=== PATIENT | male | born 1935 | race Caucasian/White ===

== ENCOUNTER → 2018-03-31 09:36 | Outpatient (CLI) | payer MEDICARE, OTHER ==
[~2018-03-31 09:36] MED LIST: DERMAFUNGAL113 GM TP; GLUCOPHAGE XR750 MG PO; GLUCOTROL 5 MG T5 MG PO; HEMOCYTE PLUS C1 CAP PO; LOPRESSOR25 MG PO; LOTRIMIN AF90 GM TOPICAL; PREDNISONE10 MG PO; TIMOPTIC 0.5 % O5 ML LEFT EYE; TUMERIC CURCUMIN PO; XALATAN 0.0052.5 ML EACH EYE; ZOFRAN4 MG PO; ZYTIGA250 MG PO
[2018-04-20 17:50] VITALS: BMI 32.4
== END | disposition home or self-care (01) ==
LOC: D.RT 09:36
DX: C61 Malignant neoplasm of prostate (principal); R91.1 Solitary pulmonary nodule

== ENCOUNTER → 2018-04-05 12:58 | Outpatient (CLI) | payer MEDICARE, OTHER ==
[2018-04-20 17:50] VITALS: BMI 32.4
== END | disposition home or self-care (01) ==
LOC: D.ECHO 12:58
DX: R06.02 Shortness of breath (principal); C34.90 Malignant neoplasm of unspecified part of unspecified bronchus or lung; R09.89 Other specified symptoms and signs involving the circulatory and respiratory systems

== ENCOUNTER → 2018-04-12 12:32 | Outpatient (CLI) | payer MEDICARE, OTHER ==
[2018-04-20 17:50] VITALS: BMI 32.4
== END | disposition home or self-care (01) ==
LOC: D.CT 12:30
DX: C34.90 Malignant neoplasm of unspecified part of unspecified bronchus or lung (principal)

== ENCOUNTER 2018-04-15 04:55 | Inpatient (IN) | payer MEDICARE, OTHER ==
[2018-04-13 14:30] LABS: HEMATOCRIT 35.2 % (42.0-54.0); HEMOGLOBIN 11.9 g/dL (13.5-17.5); MCH 32.1 pg (26.0-34.0); MCHC 33.8 g/dL (31.0-37.0); MCV 94.9 fL (80.0-100.0); MEAN PLATELET VOLUME 9.5 fL (7.4-10.4); RBC 3.71 10x6/uL (4.20-6.10); RDW 13.6 % (11.5-14.5); WBC 7.5 10x3/uL (4.8-10.8)
[2018-04-13 14:45] LABS: APPEARANCE CLEAR (CLEAR); BILIRUBIN NEGATIVE (NEGATIVE); COLOR YELLOW (YELLOW); GLUCOSE NEGATIVE (NEGATIVE); KETONE NEGATIVE (NEGATIVE); NITRITE NEGATIVE (NEGATIVE); PROTEIN TRACE mg/dL (NEGATIVE); SPECIFIC GRAVITY 1.015 (1.005-1.020); UROBILINOGEN NORMAL (NORMAL)
[2018-04-13 14:46] LABS: ALBUMIN 3.6 g/dL (3.4-5.0); ANION GAP 10.7 mmol/L (8-16); BILIRUBIN - TOTAL 0.56 mg/dL (0.2-1.3); CALCIUM 8.3 mg/dL (8.5-10.1); CARBON DIOXIDE 28.6 mmol/L (21.0-32.0); CREATININE - SERUM 1.2 mg/dL (0.6-1.3); POTASSIUM - SERUM 4.3 mmol/L (3.5-5.1); PROTEIN - SERUM 6.6 g/dL (6.4-8.2)
[2018-04-13 17:01] LABS: APTT 29.8 SECONDS (22.8-39.4); INR 0.93 (0.85-1.17); PROTIME 12.1 SECONDS (11.6-15.0)
[2018-04-15] VITALS (28 sets, daily range): BP systolic 100–164; BP diastolic 5–73; BMI 29.0; BMI 32.7
[~2018-04-15] VITALS: Ht 175.3 cm; Wt 97.2 kg
--- NOTE | ~2018-04-15 | MORECARE ---
CASE MANAGEMENT DISCHARGE SUMMARY PATIENT: HARIS CARLTON UNIT: [id number] ADM DATE: 04/15/18 AGE: 83 : 36 SEX: M ROOM/BED: D[facility] AUTHOR: IVET,DOC PHYSICIAN: REFERRING PHYSICIAN: KELTON NAM MD DATE OF SERVICE: 04/22/18 Discharge Plan Patient Name: HARIS CARLTON Facility: [facility]:[place] : 1935 Planned Disposition: Home Anticipated Discharge Date: Discharge Date: Expected LOS: Initial Reviewer: [email or web address] Initial Review Date: 04/22/2018 Generated: 04/22/18 1:02 pm Comments DCP- Discharge Planning Updated by [email or web address]: Abigail Resendiz on 04/22/18 10:[address] Patient Name: HARIS CARLTON Admission Status: Urgent Accout number: [id number] Admission Date: 04-15-2018 : 1935 Admission Diagnosis:MALIGNANT NEOPLASM OF UPPER LOBE, RIGHT BRONCHUS OR ANGEL Attending: KELTON NAM Current LOS: 7 Anticipated DC Date: Planned Disposition: Home Primary Insurance: MEDICARE A & B Discharge Planning Comments: CM MET WITH PATIENT AT BEDSIDE. PATIENT STATES HE PLANS ON RETURNING TO HIS HOME UPON DISCHARGE. PATIENT STATES HE WAS INDEPENDENT OF ADLS PRIOR TO ADMISSION. PATIENT STATES THAT THERE IS A NURSING CLOSET @ [facility] THAT THEY CAN GET ANY MEDICAL EQUIPMENT HE MAY NEED. PATIENT DENIES ANY DISCHARGE NEEDS AT THIS TIME. CM WILL FOLLOW AND ASSIST NEEDED WITH DISCHARGE PLANNING / NEEDS. Press Operator: Abigail Resendiz DCPIA - Discharge Planning Initial Assessment Updated by [email or web address]: Abigail Resendiz on 04/22/18 11:47 am * Is the patient Alert and Oriented? Yes * How many steps to enter\exit or inside your home? * PCP BATSHEVA NATHAN * Pharmacy [facility] - [facility] * Preadmission Environment Home with Family * ADLs Independent * Equipment Walker * Other Equipment LIFT CHAIR, PLANS TO GO TO NURSING CLOSET @[facility] TO GET SHOWER CHAIR AND BEDSIDE COMMODE. * List name and contact numbers for known caregivers / representatives who currently or will assist patient after discharge: SETH CARLTON [phone] * Verbal permission to speak to the caregivers and representatives has been obtained from the patient. Yes * Community resources currently utilized None * Additional services required to return to the preadmission environment? No * Can the patient safely return to the preadmission environment? Yes * Has this patient been hospitalized within the prior 30 days at any hospital? No Last DP export: 04/22/18 10:54 Patient Name: HARIS CARLTON Page 87107 at 1202 All edits/amendments must be made on the electronic document DICTATION DATE: 04/22/18 120 AQUATIC PHYSIOTHERAPIST: JOVANNY 04/22/18 1202 RPT#: [id number] DC DATE: STATUS: ADM IN [facility] [address] [place] [address] END OF REPORT
--- NOTE | ~2018-04-15 | MORECARE ---
CASE MANAGEMENT DISCHARGE SUMMARY PATIENT: HARIS CARLTON UNIT: [id number] ADM DATE: 04/15/18 AGE: 83 : 36 SEX: M ROOM/BED: D[facility] AUTHOR: IVET,DOC PHYSICIAN: REFERRING PHYSICIAN: KELTON NAM MD DATE OF SERVICE: 04/25/18 Discharge Plan Patient Name: HARIS CARLTON Facility: [facility]:[place] : 1935 Planned Disposition: Home Anticipated Discharge Date: Discharge Date: 04/24/2018 Expected LOS: Initial Reviewer: [email or web address] Initial Review Date: 04/22/2018 Generated: 04/25/18 10:20 am Comments DCP- Discharge Planning Updated by [email or web address]: Abigail Resendiz on 04/22/18 10:[address] Patient Name: HARIS CARLTON Admission Status: Urgent Accout number: [id number] Admission Date: 04-15-2018 : 1935 Admission Diagnosis:MALIGNANT NEOPLASM OF UPPER LOBE, RIGHT BRONCHUS OR ANGEL Attending: KELTON NAM Current LOS: 7 Anticipated DC Date: Planned Disposition: Home Primary Insurance: MEDICARE A & B Discharge Planning Comments: CM MET WITH PATIENT AT BEDSIDE. PATIENT STATES HE PLANS ON RETURNING TO HIS HOME UPON DISCHARGE. PATIENT STATES HE WAS INDEPENDENT OF ADLS PRIOR TO ADMISSION. PATIENT STATES THAT THERE IS A NURSING CLOSET @ [facility] THAT THEY CAN GET ANY MEDICAL EQUIPMENT HE MAY NEED. PATIENT DENIES ANY DISCHARGE NEEDS AT THIS TIME. CM WILL FOLLOW AND ASSIST NEEDED WITH DISCHARGE PLANNING / NEEDS. Rag Sorter And Cutter: Abigail Resendiz DCPIA - Discharge Planning Initial Assessment Updated by [email or web address]: Abigail Resendiz on 04/22/18 11:47 am * Is the patient Alert and Oriented? Yes * How many steps to enter\exit or inside your home? * PCP BATSHEVA NATHAN * Pharmacy [facility] * Preadmission Environment Home with Family * ADLs Independent * Equipment Walker * Other Equipment LIFT CHAIR, PLANS TO GO TO NURSING CLOSET [facility] TO GET SHOWER CHAIR AND BEDSIDE COMMODE. * List name and contact numbers for known caregivers / representatives who currently or will assist patient after discharge: SETH CARLTON [phone] * Verbal permission to speak to the caregivers and representatives has been obtained from the patient. Yes * Community resources currently utilized None * Additional services required to return to the preadmission environment? No * Can the patient safely return to the preadmission environment? Yes * Has this patient been hospitalized within the prior 30 days at any hospital? No Last DP export: 04/22/18 11:02 Patient Name: HARIS CARLTON Page 87504 at 0921 All edits/amendments must be made on the electronic document DICTATION DATE: 04/25/18919 EMPLOYMENT INSTRUCTIONAL ASSOCIATE: JOVANNY 04/25/18919 RPT#: [id number] DC DATE:04/24/18 STATUS: DIS IN [facility] [address] [place] [address] END OF REPORT
--- NOTE | ~2018-04-15 | MORECARE ---
CASE MANAGEMENT DISCHARGE SUMMARY PATIENT: HARIS CARLTON UNIT: [id number] ADM DATE: 04/15/18 AGE: 83 : 36 SEX: M ROOM/BED: D[facility] AUTHOR: ISAIAH COONEY PHYSICIAN: REFERRING PHYSICIAN: KELTON NAM MD DATE OF SERVICE: 04/22/18 Discharge Plan Patient Name: HARIS CARLTON [facility] : 1935 Planned Disposition: Home Anticipated Discharge Date: Discharge Date: Expected LOS: Initial Reviewer: [email or web address] Initial Review Date: 04/22/2018 Generated: 04/22/18 12:53 pm DCPIA - Discharge Planning Initial Assessment Updated by [email or web address]: Abigail Resendiz on 04/22/18 11:47 am * Is the patient Alert and Oriented? Yes * How many steps to enter\exit or inside your home? * PCP BATSHEVA NATHAN * Pharmacy [facility] * Preadmission Environment Home with Family * ADLs Independent * Equipment Walker * Other Equipment LIFT CHAIR, PLANS TO GO TO NURSING CLOSET [facility] TO GET SHOWER CHAIR AND BEDSIDE COMMODE. * List name and contact numbers for known caregivers / representatives who currently or will assist patient after discharge: SETH CARLTON [phone] * Verbal permission to speak to the caregivers and representatives has been obtained from the patient. Yes * Community resources currently utilized None * Additional services required to return to the preadmission environment? No * Can the patient safely return to the preadmission environment? Yes * Has this patient been hospitalized within the prior 30 days at any hospital? No Last DP export: 04/22/18 10:46 Patient Name: HARIS CARLTON Page 46188 at 1154 All edits/amendments must be made on the electronic document DICTATION DATE: 04/22/18 115 LEGAL INTERNSHIP: JOVANNY 04/22/18 1153 RPT#: [id number] DC DATE: STATUS: ADM IN [facility] [address] [place] [address] END OF REPORT
--- NOTE | ~2018-04-15 | MORECARE ---
CASE MANAGEMENT DISCHARGE SUMMARY PATIENT: HARIS CARLTON UNIT: [id number] ADM DATE: 04/15/18 AGE: 83 : 36 SEX: M ROOM/BED: D[facility] AUTHOR: ISAIAH COONEY PHYSICIAN: REFERRING PHYSICIAN: KELTON NAM MD DATE OF SERVICE: 04/22/18 Discharge Plan Patient Name: HARIS CARLTON Facility: [facility]:[place] : 1935 Planned Disposition: Home Anticipated Discharge Date: Discharge Date: Expected LOS: Initial Reviewer: [email or web address] Initial Review Date: 04/22/2018 Generated: 04/22/18 12:46 pm Patient Name: HARIS CARLTON Page 91514 at 1146 All edits/amendments must be made on the electronic document DICTATION DATE: 04/22/18 1145 INFECTION CONTROL COORDINATOR: JOVANNY 04/22/18 1145 RPT#: [id number] DC DATE: STATUS: ADM IN [facility] [address] [place] [address] END OF REPORT
--- NOTE | ~2018-04-15 | OP ---
PATIENT NAME: HARIS CARLTON MEDICAL RECORD: [id number] :[birth year] [facility]CV[facility] ADMISSION DATE:04/15/18 SURGEON: JUANCHO NAM MD DATE OF OPERATION: 04/15/2018 SURGEON: Juancho Nam MD ELECTRONIC INSTRUMENT TRADES WORKER: Yony Domínguez MD ANESTHESIA: General endotracheal, Dr. Wheeler. OPERATIONS PERFORMED: 1. Right upper lobe resection. 2. Right radical mediastinal lymphadenectomy. 3. Flexible fiberoptic bronchoscopy. PREOPERATIVE DIAGNOSIS: Non-small cell carcinoma, right upper lobe. POSTOPERATIVE DIAGNOSIS: Non-small cell carcinoma, right upper lobe. INDICATION FOR OPERATION: Non-small cell carcinoma, right upper lobe. FINDINGS OF THE OPERATION: Non-small cell carcinoma, right upper lobe. There was no other obvious pathology. DESCRIPTION OF PROCEDURE: After informed consent, adequate preoperative medication evaluation, the patient was brought to the operating room, placed on the table in the supine position. After induction of general endotracheal anesthesia and application of appropriate monitoring devices, the patient underwent placement of a double lumen tube and flexible fiberoptic bronchoscopy. The patient was then turned in a left lateral decubitus position, left chest prepped and draped in sterile field, utilizing Betadine scrub, alcohol, and Betadine solution, a Betadine-impregnated drape was also used. Care was taken to protect the neurological structures and pressure points. A small posterolateral thoracotomy incision was made and dissection was carried down to the fascia. Hemostasis maintained with electrocautery. Fifth interspace was identified and divided. The right hemithorax was examined. There was no other pathology other than lesion in the right upper lobe. Dissection was carried out at the confluence of the major and minor fissure and the pulmonary artery identified and dissected proximally. Attention was then turned towards the hilum. It was incised anteriorly, posteriorly and superiorly. The tissues were mobilized. The pulmonary artery to the upper lobe was dissected free of surrounding structures and divided utilizing an Endo-INDIRA stapler. Attention was then turned towards the upper lobe vein. This was also divided with an Endo-INDIRA stapler. The dissection was then carried out along the pulmonary artery distally to the confluence of the major and minor fissures. The fissures anteriorly and posteriorly were developed with an Endo-INDIRA staplers. Attention was then turned towards the upper lobe bronchus. The lymph nodes were dissected with the specimen. The bronchus was then divided after testing utilizing a TA 34.8 stapler. The specimen was removed and the chest irrigated OPERATIVE REPORT [id number] HARIS CARLTON with copious amounts of sterile water. Attention was then turned toward the lymph node dissection. The R4 nodes were dissected free of surrounding structures utilizing a Harmonic scalpel. Attention was then turned towards the level 7 nodes and these were removed with the same technique and Harmonic scalpel. There were no nodes at level 8 or level 9. Chest was again irrigated with copious amounts of antibiotic solution and normal saline. Two #28 chest tubes were placed, one anteriorly and superiorly, one posteriorly and inferiorly. The chest was again irrigated. Instrument count and sponge count were correct times 2. Chest closed in layers utilizing #2 Vicryl pericostal sutures, #1 Vicryl on the latissimus dorsi. Subcutaneous tissue approximated with 2-0 Vicryl and skin approximated with 3-0 subcuticular Vicryl. Sterile dressings were applied. The patient was turned in a supine position. The patient underwent flexible fiberoptic bronchoscopy with good closure of the upper lobe bronchus and no endobronchial lesions. The patient was then extubated and conveyed to the cardiovascular intensive care unit in satisfactory condition. TRANSINT:[id number] Voice Confirmation ID: [id number] DOCUMENT ID: [id number] JUANCHO NAM MD at 1001 CC: [id number] DICTATION DATE: 04/15/18 1136 BOX TOE BUFFER: 04/15/18 [address] [facility] [place] [place] [address]
--- NOTE | ~2018-04-15 | HP ---
PATIENT: HARIS CARLTON MEDICAL RECORD: [id number] ACCOUNT: [id number] LOCATION:[facility] D.CV08 : 37 ADMISSION DATE: 04/15/18 PCP: KELTON NAM MD HISTORY AND PHYSICAL EXAMINATION HARIS Olmedo (83yo, M) ID# [id number]. Date/Time04/12/2018 11:44EVOAO1936Service Dept.NP_[facility] ClinicProviderEDLEVI NAM MDInsuranceMed Primary: [place] Insurance # : [id number] Employer Name : RETIRED Med Secondary: [employer] Insurance # : [id number] Policy/Group # : [id number] Employer Name : RETIRED Prescription: [employer] - Member is eligible. Chief Complaint Followup: Malignant tumor of lung RUL NSCLC Vitals BP:112/68 sitting R arm 04/12/2018 11:17 amHR:66/reg 04/12/2018 11:17 amHt:5 ft 9 in 04/12/2018 11:14 amWt:201 lbs 04/12/2018 11:15 amBMI:29.7 04/12/2018 11:15 amAllergies Reviewed Allergies FFTXOUS-EYN-APO REDUCTASE INHIBITORS: Myalgias (muscle pain)SULFA (SULFONAMIDE ANTIBIOTICS): RashMedications Reviewed Medications Aspir-Zoila 325 mg tablet,delayed release Take 1 tablet(s) every day by oral route.04/04/18 enteredErika WatkinsglipiZIDE 5 mg tablet Take 1 tablet(s) twice a day by oral route.04/04/18 enteredErika Watkinslisinopril 2.5 mg agwdwr07/07/18 filledOPTUMRXmetFORMIN 1,000 mg tablet Take 1 tablet(s) twice a day by oral route.04/04/18 enteredErika Watkinsmetoprolol tartrate 25 MG04/04/18 enteredErika Watkinsondansetron 8 mg disintegrating nfxyyv94/30/18 filledOPTUMRXXtandi 40 mg capsule Take 4 capsule(s) every day by oral route.04/04/18 enteredErika WatkinsZytiga 250 mg tablet Take 4 tablet(s) every day by oral route.04/04/18 Kwame Peña Reviewed Problems Malignant tumor of lung - Onset: 02/28/2018, Right - RUL Malignant tumor of prostate - Onset: 05/31/2006 Diabetes mellitus Hypertensive disorder Osteoarthritis Family History Reviewed Family History Social History Reviewed Social History Smoking Status: Former smoker Surgical History Reviewed Surgical History Prostatectomy (turp) HISTORY AND PHYSICAL [id number] HARIS CARLTON Past Medical History Reviewed Past Medical History Cancer: Y - PROSTATE Diabetes: Y High Blood Pressure: Y Hypertension: Y Documents for Discussion Discussed the following documents: US, DOPPLER ECHOCARDIOGRAM, W/ COLOR FLOW - 04/05/18 US, DUPLEX, CAROTID ARTERY - 04/05/18 Screening None recorded. HPI Carcinoma right upper lobe ROS Patient reports exercise intolerance but reports no f ever, no night sweats, no significant weight gain, and no significant weight loss. He reports no incontinence, no difficulty urinating, no hematuria, and no increased frequency; History of prostate carcinoma. He reports muscle aches, muscle weakness, and arthralgias/joint pain but reports no back pain and no swelling in the extremities. He reports no dry eyes, no irritation, and no vision change. He reports no difficulty hearing and no ear pain. He reports no frequent nosebleeds and no nose/sinus problems. He reports no sore throat, no bleeding gums, no snoring, no dry mouth, no mouth ulcers, no oral abnormalities, and no teeth problems. He reports no jugular vein distension and no swollen glands. He reports no chest pain, no arm pain on exertion, no shortn e ss of breath when walking, no shortness of breath when lying down, no palpitations, and no known heart murmur. He reports no cough, no wheezing, no shortness of breath, and no coughing up blood. He reports no abdominal pain, no vomiting, normal appetite, n o diarrhea, not vomiting blood, no nausea, and no constipation. He reports no abnormal mole, no jaundice, and no rashes. He reports no loss of consciousness, no weakness, no numbness, no seizures, no dizziness, and no headaches. He reports no depression, no sleep disturbances, feeling safe in relationship, and no alcohol abuse. He reports no fatigue. He reports no swollen glands and no bruising. He reports no runny nose, no sinus pressure, no itching, no hives, and no frequent sneezing. ROS as noted in the HPI Physical Exam Patient is an 83-year-old male. Constitutional: General Appearance well nourished and developed and healthy-appearing. Level of Distress NAD. Ambulation ambulating normally. Cardiovascular: Apical Impulse not displaced or no thrill. He art Auscultation normal s1 and s2; no murmurs, rubs, or gallops; and RRR. Arterial Pulses no abdominal aorta bruits, femoral bruits, or popliteal bruits and 2+ bilateral, carotid 2+ bilateral, femoral 2+ bilateral, popliteal 2+ bilateral, and dorsalis ped is 2+ bilateral. Edema no edema or varicosities. Lungs: Repiratory Effort no dyspnea. Percussion no hyperresonance or dullness or flatness. Auscultation no wheezing, rhonchi, or rales / crackles and breathing sounds normal, good air movement, and CTA except as noted. Abdomen: Bowl Sounds normal. Inspection and Palpation no tenderness, guarding, masses, or rebound tenderness and soft and non-distended. Liver non-tender and no hepatomegaly. Spleen non-tender and no splenomegaly. Hernia none palpable. HISTORY AND PHYSICAL [id number] HARIS CARLTON Musculoskeletal System: Gait And Stance normal gait and stance. Digits and Nails normal nails and no cyanosis. Joints, Bones, and Muscles limited ROM. Neurologic: Cranial Nerves grossly intact. Reflexes DTRs 2+ bilaterally throughout. Sensation grossly intact. Lymph Nodes: Lymph Nodes no cervical LAD, supraclavicular LAD, axillary LAD, or inguinal LAD. Eyes: Lids and Conjunctivae no discharge or pallor and non-injected. Pupils PERRLA. Cornea grossly intact. EOM EOMI. Lens clear. Sclerae non-icteric. Neck: Neck no masses, enlarged lymph nodes, or carotid bruits and supple and trachea midline. Thyroid no enlargement or nodules and non-tender. Skin: Inspection and Palpation no rash, lesions, ulcers, jaundice, or abnormal nevi. Assessment / Plan Carcinoma right upper lobe 1. Malignant tumor of lung - Right C34.90: Malignant neoplasm of unspecified part of unspecified bronchus or lung Discussion Notes Have discussed the patient's disease process with him and his in detail as well as the alternative met hods of treatment we discussed right pulmonary resection including the expected benefits and risk which include bleeding, infection, stroke, , and imponderables. He understands all of the above and wishes to proceed with planned surgery KELTON NAM MD at 1001 CC: [id number] DICTATION DATE: 04/12/18 1120 DEVELOPMENT INTERN: JOVANNY 04/14/18 1553 ADM IN [facility] [address] [place] [id number]
[~2018-04-15 04:55] MED LIST changes: -HEMOCYTE PLUS C1 CAP PO
[2018-04-16] VITALS (29 sets, daily range): BP systolic 90–154; BP diastolic 45–74; BMI 32.4
[2018-04-16 06:23] LABS: HEMATOCRIT 30.7 % (42.0-54.0); HEMOGLOBIN 10.4 g/dL (13.5-17.5); MCH 32.1 pg (26.0-34.0); MCHC 33.9 g/dL (31.0-37.0); MCV 94.8 fL (80.0-100.0); MEAN PLATELET VOLUME 9.6 fL (7.4-10.4); RBC 3.24 10x6/uL (4.20-6.10); RDW 13.5 % (11.5-14.5); WBC 9.3 10x3/uL (4.8-10.8)
[2018-04-16 06:56] LABS: ALBUMIN 2.7 g/dL (3.4-5.0); ALKALINE PHOSPHATASE 64 U/L (46-116); ALT (SGPT) 24 U/L (10-68); BILIRUBIN - TOTAL 0.72 mg/dL (0.2-1.3); CARBON DIOXIDE 22.7 mmol/L (21.0-32.0); CHLORIDE - SERUM 104 mmol/L (98-107); CREATININE - SERUM 0.8 mg/dL (0.6-1.3); POTASSIUM - SERUM 3.9 mmol/L (3.5-5.1); PROTEIN - SERUM 5.3 g/dL (6.4-8.2); SODIUM 135 mmol/L (136-145); UREA NITROGEN 18 mg/dL (7-18); eGFR NON AFRICAN AMERICAN > 90 mL/min (90-120)
[2018-04-16 07:01] LABS: CALC OSMOLALITY 272 mosm/kg (275-300); GLUCOSE 120 mg/dL (74-106)
[2018-04-16 07:02] LABS: CALCIUM 6.7 mg/dL (8.5-10.1)
[2018-04-17] VITALS (24 sets, daily range): BP systolic 89–147; BP diastolic 48–80
[2018-04-17 06:24] LABS: HEMATOCRIT 28.3 % (42.0-54.0); HEMOGLOBIN 9.6 g/dL (13.5-17.5); MCHC 33.9 g/dL (31.0-37.0); MCV 94.3 fL (80.0-100.0); MEAN PLATELET VOLUME 9.1 fL (7.4-10.4); RDW 13.5 % (11.5-14.5); WBC 9.7 10x3/uL (4.8-10.8)
[2018-04-17 06:44] LABS: ALBUMIN 2.2 g/dL (3.4-5.0); ALKALINE PHOSPHATASE 59 U/L (46-116); BILIRUBIN - TOTAL 0.36 mg/dL (0.2-1.3); CARBON DIOXIDE 24.8 mmol/L (21.0-32.0); CHLORIDE - SERUM 102 mmol/L (98-107); CREATININE - SERUM 0.9 mg/dL (0.6-1.3); POTASSIUM - SERUM 3.5 mmol/L (3.5-5.1); PROTEIN - SERUM 4.9 g/dL (6.4-8.2); SODIUM 132 mmol/L (136-145); UREA NITROGEN 20 mg/dL (7-18); eGFR NON AFRICAN AMERICAN 86 mL/min (90-120)
[2018-04-17 06:46] LABS: ALT (SGPT) 17 U/L (10-68); CALC OSMOLALITY 273 mosm/kg (275-300); CALCIUM 6.4 mg/dL (8.5-10.1); GLUCOSE 209 mg/dL (74-106)
[2018-04-18] VITALS (24 sets, daily range): BP systolic 109–154; BP diastolic 53–78
[2018-04-18 05:58] LABS: HEMATOCRIT 29.7 % (42.0-54.0); MCH 31.4 pg (26.0-34.0); MCHC 33.7 g/dL (31.0-37.0); MCV 93.4 fL (80.0-100.0); MEAN PLATELET VOLUME 9.7 fL (7.4-10.4); RBC 3.18 10x6/uL (4.20-6.10); RDW 13.1 % (11.5-14.5); WBC 8.4 10x3/uL (4.8-10.8)
[2018-04-18 06:33] LABS: ALBUMIN 2.2 g/dL (3.4-5.0); ALKALINE PHOSPHATASE 65 U/L (46-116); ALT (SGPT) 19 U/L (10-68); BILIRUBIN - TOTAL 0.61 mg/dL (0.2-1.3); CALC OSMOLALITY 272 mosm/kg (275-300); CALCIUM 7.1 mg/dL (8.5-10.1); CARBON DIOXIDE 25.3 mmol/L (21.0-32.0); CHLORIDE - SERUM 101 mmol/L (98-107); CREATININE - SERUM 0.8 mg/dL (0.6-1.3); GLUCOSE 185 mg/dL (74-106); POTASSIUM - SERUM 3.8 mmol/L (3.5-5.1); PROTEIN - SERUM 5.3 g/dL (6.4-8.2); SODIUM 134 mmol/L (136-145); eGFR NON AFRICAN AMERICAN > 90 mL/min (90-120)
[2018-04-18 06:35] LABS: UREA NITROGEN 12 mg/dL (7-18)
[2018-04-19] VITALS (24 sets, daily range): BP systolic 121–177; BP diastolic 52–80
[2018-04-19 06:55] LABS: ALBUMIN 2.1 g/dL (3.4-5.0); ALKALINE PHOSPHATASE 65 U/L (46-116); BILIRUBIN - TOTAL 0.73 mg/dL (0.2-1.3); CALC OSMOLALITY 270 mosm/kg (275-300); CALCIUM 7.8 mg/dL (8.5-10.1); CARBON DIOXIDE 26.5 mmol/L (21.0-32.0); CHLORIDE - SERUM 98 mmol/L (98-107); CREATININE - SERUM 0.8 mg/dL (0.6-1.3); GLUCOSE 202 mg/dL (74-106); PROTEIN - SERUM 5.4 g/dL (6.4-8.2); SODIUM 133 mmol/L (136-145); UREA NITROGEN 11 mg/dL (7-18); eGFR NON AFRICAN AMERICAN > 90 mL/min (90-120)
[2018-04-19 07:03] LABS: ALT (SGPT) 14 U/L (10-68); POTASSIUM - SERUM 3.2 mmol/L (3.5-5.1)
[2018-04-19 07:19] LABS: HEMATOCRIT 29.4 % (42.0-54.0); HEMOGLOBIN 10.2 g/dL (13.5-17.5); MCH 32.1 pg (26.0-34.0); MCHC 34.7 g/dL (31.0-37.0); MCV 92.5 fL (80.0-100.0); MEAN PLATELET VOLUME 10.4 fL (7.4-10.4); RBC 3.18 10x6/uL (4.20-6.10); RDW 12.9 % (11.5-14.5); WBC 7.9 10x3/uL (4.8-10.8)
[2018-04-20] VITALS (23 sets, daily range): BP systolic 113–152; BP diastolic 55–82; Ht 175.3 cm; Wt 97.2 kg
[2018-04-20 06:36] LABS: HEMATOCRIT 28.4 % (42.0-54.0); HEMOGLOBIN 9.8 g/dL (13.5-17.5); MCH 31.8 pg (26.0-34.0); MCHC 34.5 g/dL (31.0-37.0); MCV 92.2 fL (80.0-100.0); MEAN PLATELET VOLUME 10.1 fL (7.4-10.4); RBC 3.08 10x6/uL (4.20-6.10); RDW 13.1 % (11.5-14.5); WBC 7.5 10x3/uL (4.8-10.8)
[2018-04-20 06:54] LABS: ALBUMIN 2.2 g/dL (3.4-5.0); ALKALINE PHOSPHATASE 63 U/L (46-116); ALT (SGPT) 16 U/L (10-68); BILIRUBIN - TOTAL 0.71 mg/dL (0.2-1.3); CARBON DIOXIDE 27.1 mmol/L (21.0-32.0); CHLORIDE - SERUM 95 mmol/L (98-107); CREATININE - SERUM 0.8 mg/dL (0.6-1.3); GLUCOSE 197 mg/dL (74-106); POTASSIUM - SERUM 3.5 mmol/L (3.5-5.1); PROTEIN - SERUM 5.2 g/dL (6.4-8.2); SODIUM 130 mmol/L (136-145); eGFR NON AFRICAN AMERICAN > 90 mL/min (90-120)
[2018-04-20 06:55] LABS: CALC OSMOLALITY 267 mosm/kg (275-300); UREA NITROGEN 18 mg/dL (7-18)
[2018-04-21] VITALS (24 sets, daily range): BP systolic 104–161; BP diastolic 51–77
[2018-04-22] VITALS (20 sets, daily range): BP systolic 92–155; BP diastolic 51–75
[2018-04-23] VITALS (13 sets, daily range): BP systolic 108–149; BP diastolic 56–71
[2018-04-23 06:35] LABS: HEMATOCRIT 30.4 % (42.0-54.0); HEMOGLOBIN 10.6 g/dL (13.5-17.5); MCH 31.8 pg (26.0-34.0); MCHC 34.9 g/dL (31.0-37.0); MCV 91.3 fL (80.0-100.0); MEAN PLATELET VOLUME 9.2 fL (7.4-10.4); RBC 3.33 10x6/uL (4.20-6.10); RDW 13.2 % (11.5-14.5)
[2018-04-23 06:52] LABS: ALBUMIN 2.4 g/dL (3.4-5.0); ALKALINE PHOSPHATASE 73 U/L (46-116); ALT (SGPT) 19 U/L (10-68); BILIRUBIN - TOTAL 0.44 mg/dL (0.2-1.3); CALC OSMOLALITY 274 mosm/kg (275-300); CARBON DIOXIDE 27.4 mmol/L (21.0-32.0); CHLORIDE - SERUM 96 mmol/L (98-107); CREATININE - SERUM 0.9 mg/dL (0.6-1.3); GLUCOSE 232 mg/dL (74-106); POTASSIUM - SERUM 3.9 mmol/L (3.5-5.1); PROTEIN - SERUM 5.5 g/dL (6.4-8.2); SODIUM 131 mmol/L (136-145); UREA NITROGEN 27 mg/dL (7-18); eGFR NON AFRICAN AMERICAN 86 mL/min (90-120)
[2018-04-24] VITALS: BP 135/67
[2018-04-24 04:00] VITALS: BP 138/68
[2018-04-24 05:51] LABS: HEMATOCRIT 27.5 % (42.0-54.0); HEMOGLOBIN 9.6 g/dL (13.5-17.5); MCH 31.8 pg (26.0-34.0); MCHC 34.9 g/dL (31.0-37.0); MCV 91.1 fL (80.0-100.0); MEAN PLATELET VOLUME 8.9 fL (7.4-10.4); RBC 3.02 10x6/uL (4.20-6.10); RDW 13.1 % (11.5-14.5); WBC 9.4 10x3/uL (4.8-10.8)
[2018-04-24 06:16] LABS: ALBUMIN 2.2 g/dL (3.4-5.0); ALKALINE PHOSPHATASE 68 U/L (46-116); ALT (SGPT) 19 U/L (10-68); BILIRUBIN - TOTAL 0.39 mg/dL (0.2-1.3); CALC OSMOLALITY 270 mosm/kg (275-300); CALCIUM 8.1 mg/dL (8.5-10.1); CARBON DIOXIDE 26.2 mmol/L (21.0-32.0); CHLORIDE - SERUM 99 mmol/L (98-107); CREATININE - SERUM 0.9 mg/dL (0.6-1.3); POTASSIUM - SERUM 3.8 mmol/L (3.5-5.1); PROTEIN - SERUM 5.1 g/dL (6.4-8.2); SODIUM 132 mmol/L (136-145); UREA NITROGEN 25 mg/dL (7-18); eGFR NON AFRICAN AMERICAN 86 mL/min (90-120)
[2018-04-24 06:18] LABS: GLUCOSE 143 mg/dL (74-106)
[2018-04-24 07:00] VITALS: BP 130/65
[2018-04-24 09:00] VITALS: BP 115/61
[2018-04-24] MEDS ORDERED: HEMOCYTE PLUS C1 CAP PO (12:38)
== END 2018-04-24 14:27 | disposition home or self-care (01) | DRG 164 ==
LOC: D.SDCHOLD 04:55 → D.CVICU 04:55 → D.SDCHOLD 07:30 → D.CVICU 09:36
PROVIDERS: Internal Medicine Cardiovascular Disease
PROC: 0BJ08ZZ Inspection of Tracheobronchial Tree, Via Natural or Artificial Opening Endoscopic (ICD-10-PCS; 2018-04-15)
PROC: 0BTC0ZZ Resection of Right Upper Lung Lobe, Open Approach (ICD-10-PCS; principal; 2018-04-15 07:30)
PROC: 07T70ZZ Resection of Thorax Lymphatic, Open Approach (ICD-10-PCS; 2018-04-15 07:30)
DX: C34.11 Malignant neoplasm of upper lobe, right bronchus or lung (principal); J95.812 Postprocedural air leak; I10 Essential (primary) hypertension; E11.9 Type 2 diabetes mellitus without complications; C61 Malignant neoplasm of prostate; M19.90 Unspecified osteoarthritis, unspecified site; I48.91 Unspecified atrial fibrillation; I95.9 Hypotension, unspecified; Z87.891 Personal history of nicotine dependence; K59.00 Constipation, unspecified; R32 Unspecified urinary incontinence; K21.9 Gastro-esophageal reflux disease without esophagitis

== ENCOUNTER → 2018-05-05 10:20 | Outpatient (CLI) | payer MEDICARE, OTHER ==
[2018-04-20 17:50] VITALS: BMI 32.4
[~2018-05-05 10:20] MED LIST changes: +HEMOCYTE PLUS C1 CAP PO
== END | disposition home or self-care (01) ==
LOC: D.RAD 10:20 → D.LAB 10:20
DX: J91.8 Pleural effusion in other conditions classified elsewhere (principal)

== ENCOUNTER → 2019-02-07 12:38 | Outpatient (CLI) | payer MEDICARE, OTHER ==
[2018-04-20 17:50] VITALS: BMI 32.4
== END | disposition home or self-care (01) ==
LOC: D.RAD 12:38
PROVIDERS: ATTEND Internal Medicine Cardiovascular Disease
DX: C34.90 Malignant neoplasm of unspecified part of unspecified bronchus or lung (principal)

== ENCOUNTER → 2019-11-21 09:33 | Outpatient (CLI) | payer MEDICARE, OTHER ==
[2018-04-20 17:50] VITALS: BMI 32.4
== END | disposition home or self-care (01) ==
LOC: D.HCCECHO 09:30
PROVIDERS: ATTEND Internal Medicine Interventional Cardiology
DX: I48.91 Unspecified atrial fibrillation (principal)